=== PATIENT | female | born 1965 | race Two or more races ===

== ENCOUNTER 2020-08-24 19:23 | Inpatient (IN) | payer MEDICARE, OTHER ==
[~2020-08-24] VITALS: Ht 160 cm; Wt 63.8 kg
[2020-08-24] MEDS ORDERED: methylPREDNISolone SOD SUCC 125 MG/2 ML VL IV ONE (19:45)
[2020-08-24] MEDS ORDERED: AZITHROMYCIN 500MG/ 250ML 250 ML IV ONE (19:45)
[2020-08-24 20:50] LABS: Basophils # (auto) 0 10 ^3/uL (0-0.2); Eosinophils # (auto) 0 10 ^3/uL (0-0.8); Hematocrit 35.6 % (36.0-46.0)
[2020-08-24 20:52] LABS: Basophils % (auto) 0.2 % (0.0-2.0); Hemoglobin 11.2 g/dL (12.2-16.2); Lymphocytes % (auto) 7.4 % (10.0-50.0); Mean Corpuscular Hgb Conc. 31.4 g/dL (32.0-36.0); Monocytes # (auto) 0.4 10 ^3/uL (0-1.3); Monocytes % (auto) 2.8 % (0.0-12.0); Neutrophils # (auto) 12.1 10 ^3/uL (1.6-8.6); Neutrophils % (auto) 89.6 % (37.0-80.0); Nucleated Red Blood Cells % 0.1 %; Platelet Count (auto) 245 10^3/uL (140-450); Red Blood Cells 5.31 10^6/uL (4.0-5.20); Red Cell Distribution Width 18.6 % (11.8-14.3); White Blood Cell 13.5 10^3/uL (4.4-10.8)
[2020-08-24 21:15] VITALS: BP 117/48
[2020-08-24 21:18] LABS: INR 2.55 (0.9-1.15); Partial Thromboplastin Time 40.7 sec (23.0-31.2)
[2020-08-24 21:21] LABS: Albumin 3.4 g/dL (3.4-5.0); Magnesium 2.5 mg/dL (1.6-2.6); Potassium 3.5 mmol/L (3.5-5.1)
[2020-08-24 21:27] LABS: BUN/Creatinine Ratio 17.9; Bilirubin, Total 0.6 mg/dL (0.2-1.0); Total Protein 7.6 g/dL (6.4-8.2)
[2020-08-25] VITALS (7 sets, daily range): BP systolic 98–129; BP diastolic 50–63
[2020-08-25] MEDS ORDERED: ONDANSETRON HCL 4 MG/2 ML VIAL IV PRN (01:00)
[2020-08-25] MEDS ORDERED: MORPHINE SULF INJ 2 MG/ML SYRINGE 1ML IV PRN (01:00)
[2020-08-25] MEDS ORDERED: REMDESIVIR PER PHARMACY 0 ML IV SCH (01:00)
[2020-08-25] MEDS ORDERED: DOCUSATE SOD 100 MG CAP PO PRN (01:00)
[2020-08-25] MEDS ORDERED: HYDROcodone-ACET 5/325MG TAB PO PRN (01:00)
[2020-08-25] MEDS ORDERED: NITROGLYCERIN 0.4 MG SL TAB SL PRN (01:00)
[2020-08-25] MEDS ORDERED: ACETAMINOPHEN 500 MG TAB PO PRN (01:00)
[2020-08-25] MEDS: SODIUM CHLOR 0.9% PF (SALINE LOCK) 10ML VIAL/SYR IV SCH ×3 (07:36→22:00)
[2020-08-25 07:47] LABS: Basophils # (auto) 0 10 ^3/uL (0-0.2); Eosinophils # (auto) 0 10 ^3/uL (0-0.8); Hemoglobin 10.5 g/dL (12.2-16.2); Lymphocytes # (auto) 0.5 10 ^3/uL (0.4-5.4); White Blood Cell 11.2 10^3/uL (4.4-10.8)
[2020-08-25 07:50] LABS: Basophils % (auto) 0.1 % (0.0-2.0); Hematocrit 33.1 % (36.0-46.0); Lymphocytes % (auto) 4.1 % (10.0-50.0); Mean Corpuscular Hemoglobin 20.8 pg (28.0-32.0); Mean Corpuscular Hgb Conc. 31.5 g/dL (32.0-36.0); Monocytes # (auto) 0.1 10 ^3/uL (0-1.3); Monocytes % (auto) 0.9 % (0.0-12.0); Neutrophils # (auto) 10.7 10 ^3/uL (1.6-8.6); Neutrophils % (auto) 94.9 % (37.0-80.0); Platelet Count (auto) 223 10^3/uL (140-450); Red Blood Cells 5.02 10^6/uL (4.0-5.20); Red Cell Distribution Width 18.2 % (11.8-14.3)
[2020-08-25 08:12] LABS: INR 2.44 (0.9-1.15); Partial Thromboplastin Time 43.6 sec (23.0-31.2)
[2020-08-25 08:17] LABS: Albumin 3.1 g/dL (3.4-5.0); Calcium 8.4 mg/dL (8.5-10.1); Magnesium 2.6 mg/dL (1.6-2.6); Potassium 4.1 mmol/L (3.5-5.1)
[2020-08-25 08:26] LABS: BUN/Creatinine Ratio 25.8; Bilirubin, Total 0.5 mg/dL (0.2-1.0)
[2020-08-25] MEDS: BUDESONIDE (INHALATION) 180 MCG IH IN SCH ×2 (10:00→20:00)
[2020-08-25] MEDS: DOXYCYCLINE 100MG/250ML 250 ML IV SCH (10:06)
[2020-08-25] MEDS: MULTIPLE VITAMIN TAB PO SCH (10:06)
[2020-08-25] MEDS: ZINC SULFATE 220mg CAP or TAB PO SCH (10:06)
[2020-08-25] MEDS: PANTOPRAZOLE 40 MG/10 ML VIAL INJ IV SCH (10:06)
[2020-08-25] MEDS: DexAMETHasone SOD PHOS 10MG/1ML VIAL INJ IV SCH (10:06)
[2020-08-25] MEDS: ENOXAPARIN SOD 40 MG/0.4 ML SYRINGE SC SCH (10:07)
[2020-08-25] MEDS: CHOLECALCIFEROL (VITD3) 2,000 UNIT CAP PO SCH (10:07)
[2020-08-25] MEDS: ASCORBIC ACID 1,000 MG TAB PO SCH (10:07)
[2020-08-25] MEDS ORDERED: REMDESIVIR 200 MG in NS 210ml LOADING DOSE ADULT IV ONE (15:00)
[2020-08-26 00:40] VITALS: BP 104/55
[2020-08-26] MEDS: DOXYCYCLINE 100MG/250ML 250 ML IV SCH ×3 (00:58→21:36)
[2020-08-26] MEDS: SODIUM CHLOR 0.9% PF (SALINE LOCK) 10ML VIAL/SYR IV SCH ×3 (06:00→21:36)
[2020-08-26 06:21] LABS: Basophils # (auto) 0 10 ^3/uL (0-0.2); Basophils % (auto) 0.2 % (0.0-2.0); Eosinophils # (auto) 0 10 ^3/uL (0-0.8); Hematocrit 32.9 % (36.0-46.0); Hemoglobin 10.4 g/dL (12.2-16.2); Lymphocytes # (auto) 0.5 10 ^3/uL (0.4-5.4); Lymphocytes % (auto) 3.5 % (10.0-50.0); Mean Corpuscular Hemoglobin 20.9 pg (28.0-32.0); Mean Corpuscular Hgb Conc. 31.6 g/dL (32.0-36.0); Monocytes # (auto) 0.5 10 ^3/uL (0-1.3); Monocytes % (auto) 3.3 % (0.0-12.0); Neutrophils # (auto) 13.8 10 ^3/uL (1.6-8.6); Nucleated Red Blood Cells % 0.1 %; Platelet Count (auto) 284 10^3/uL (140-450); Red Blood Cells 4.99 10^6/uL (4.0-5.20); Red Cell Distribution Width 18.9 % (11.8-14.3); White Blood Cell 14.8 10^3/uL (4.4-10.8)
[2020-08-26 06:41] LABS: Potassium 3.7 mmol/L (3.5-5.1)
[2020-08-26 06:45] LABS: BUN/Creatinine Ratio 32.7
[2020-08-26 06:48] LABS: Bilirubin, Total 0.7 mg/dL (0.2-1.0); Total Protein 6.8 g/dL (6.4-8.2)
[2020-08-26 08:00] VITALS: BP 123/49
[2020-08-26] MEDS: BUDESONIDE (INHALATION) 180 MCG IH IN SCH ×2 (10:00→22:00)
[2020-08-26] MEDS: MULTIPLE VITAMIN TAB PO SCH (10:04)
[2020-08-26] MEDS: PANTOPRAZOLE 40 MG/10 ML VIAL INJ IV SCH (10:04)
[2020-08-26] MEDS: DexAMETHasone SOD PHOS 10MG/1ML VIAL INJ IV SCH (10:04)
[2020-08-26] MEDS: ENOXAPARIN SOD 40 MG/0.4 ML SYRINGE SC SCH (10:04)
[2020-08-26] MEDS: ZINC SULFATE 220mg CAP or TAB PO SCH (10:04)
[2020-08-26] MEDS: CHOLECALCIFEROL (VITD3) 2,000 UNIT CAP PO SCH (10:05)
[2020-08-26] MEDS: ASCORBIC ACID 1,000 MG TAB PO SCH (10:05)
[2020-08-26] MEDS: REMDESIVIR 100 MG in SODIUM CHL 0.9% 250 ML IV SCH (15:30)
[2020-08-26 16:00] VITALS: BP 130/64
[2020-08-26] MEDS ORDERED: FUROSEMIDE 40 MG/4 ML VIAL IV ONE (23:30)
[2020-08-27] VITALS: BP 114/54
[2020-08-27] MEDS: SODIUM CHLOR 0.9% PF (SALINE LOCK) 10ML VIAL/SYR IV SCH ×3 (06:00→21:26)
[2020-08-27 06:21] LABS: Basophils # (auto) 0 10 ^3/uL (0-0.2); Eosinophils # (auto) 0 10 ^3/uL (0-0.8); Hemoglobin 10.8 g/dL (12.2-16.2); Monocytes # (auto) 0.4 10 ^3/uL (0-1.3); Neutrophils # (auto) 13.7 10 ^3/uL (1.6-8.6); Nucleated Red Blood Cells % 0.1 %
[2020-08-27 06:24] LABS: Basophils % (auto) 0.2 % (0.0-2.0); Lymphocytes # (auto) 0.4 10 ^3/uL (0.4-5.4); Lymphocytes % (auto) 2.8 % (10.0-50.0); Mean Corpuscular Hemoglobin 20.5 pg (28.0-32.0); Mean Corpuscular Hgb Conc. 30.8 g/dL (32.0-36.0); Mean Corpuscular Volume 66.7 fL (80.0-100.0); Monocytes % (auto) 2.9 % (0.0-12.0); Neutrophils % (auto) 94.1 % (37.0-80.0); Platelet Count (auto) 260 10^3/uL (140-450); Red Blood Cells 5.24 10^6/uL (4.0-5.20); Red Cell Distribution Width 18.8 % (11.8-14.3); White Blood Cell 14.6 10^3/uL (4.4-10.8)
[2020-08-27 06:39] LABS: Albumin 2.9 g/dL (3.4-5.0); Calcium 8.5 mg/dL (8.5-10.1); Magnesium 2.8 mg/dL (1.6-2.6); Potassium 3.7 mmol/L (3.5-5.1)
[2020-08-27 06:46] LABS: BUN/Creatinine Ratio 33.3; Bilirubin, Total 0.9 mg/dL (0.2-1.0); Total Protein 6.9 g/dL (6.4-8.2)
[2020-08-27 08:00] VITALS: BP 131/62
[2020-08-27] MEDS: BUDESONIDE (INHALATION) 180 MCG IH IN SCH ×2 (09:37→20:43)
[2020-08-27] MEDS: PANTOPRAZOLE 40 MG/10 ML VIAL INJ IV SCH (10:46)
[2020-08-27] MEDS: DexAMETHasone SOD PHOS 10MG/1ML VIAL INJ IV SCH (10:46)
[2020-08-27] MEDS: ASCORBIC ACID 1,000 MG TAB PO SCH (10:46)
[2020-08-27] MEDS: DOXYCYCLINE 100MG/250ML 250 ML IV SCH ×2 (10:46→21:27)
[2020-08-27] MEDS: ZINC SULFATE 220mg CAP or TAB PO SCH (10:46)
[2020-08-27] MEDS: CHOLECALCIFEROL (VITD3) 2,000 UNIT CAP PO SCH (10:47)
[2020-08-27] MEDS: MULTIPLE VITAMIN TAB PO SCH (10:47)
[2020-08-27] MEDS: ENOXAPARIN SOD 40 MG/0.4 ML SYRINGE SC SCH (10:47)
[2020-08-27] MEDS ORDERED: FUROSEMIDE 40 MG/4 ML VIAL IV ONE (15:15)
[2020-08-27] MEDS: REMDESIVIR 100 MG in SODIUM CHL 0.9% 250 ML IV SCH (15:18)
[2020-08-27 16:00] VITALS: BP 98/54
[2020-08-27 18:00] VITALS: BP 117/51
[2020-08-28] VITALS: BP 108/48
[2020-08-28] MEDS: SODIUM CHLOR 0.9% PF (SALINE LOCK) 10ML VIAL/SYR IV SCH ×3 (05:32→21:15)
[2020-08-28] MEDS: BUDESONIDE (INHALATION) 180 MCG IH IN SCH ×2 (06:41→06:56)
[2020-08-28 06:59] LABS: Potassium 3.6 mmol/L (3.5-5.1)
[2020-08-28 07:51] LABS: BUN/Creatinine Ratio 42.9; Bilirubin, Total 1.1 mg/dL (0.2-1.0); Calcium 8.6 mg/dL (8.5-10.1); Total Protein 7.2 g/dL (6.4-8.2)
[2020-08-28 08:00] VITALS: BP 115/63
[2020-08-28] MEDS: ALBUTEROL SULF HFA 90MCG INH 200DOSE IN PRN (08:07)
[2020-08-28] MEDS: DOXYCYCLINE 100MG/250ML 250 ML IV SCH ×2 (10:51→21:15)
[2020-08-28] MEDS: PANTOPRAZOLE 40 MG/10 ML VIAL INJ IV SCH (10:51)
[2020-08-28] MEDS: DexAMETHasone SOD PHOS 10MG/1ML VIAL INJ IV SCH (10:51)
[2020-08-28] MEDS: ZINC SULFATE 220mg CAP or TAB PO SCH (10:51)
[2020-08-28] MEDS: MULTIPLE VITAMIN TAB PO SCH (10:51)
[2020-08-28] MEDS: CHOLECALCIFEROL (VITD3) 2,000 UNIT CAP PO SCH (10:52)
[2020-08-28] MEDS: ENOXAPARIN SOD 40 MG/0.4 ML SYRINGE SC SCH (10:52)
[2020-08-28] MEDS: ASCORBIC ACID 1,000 MG TAB PO SCH (10:52)
[2020-08-28] MEDS: REMDESIVIR 100 MG in SODIUM CHL 0.9% 250 ML IV SCH (15:20)
[2020-08-28 16:00] VITALS: BP 109/60
[2020-08-29] VITALS: BP 112/54
[2020-08-29] MEDS: SODIUM CHLOR 0.9% PF (SALINE LOCK) 10ML VIAL/SYR IV SCH ×3 (05:47→21:40)
[2020-08-29 06:22] LABS: Basophils # (auto) 0 10 ^3/uL (0-0.2); Eosinophils # (auto) 0 10 ^3/uL (0-0.8); Hemoglobin 11.7 g/dL (12.2-16.2); Lymphocytes # (auto) 0.6 10 ^3/uL (0.4-5.4); Monocytes # (auto) 0.5 10 ^3/uL (0-1.3); Nucleated Red Blood Cells % 0.1 %; Platelet Count (auto) 223 10^3/uL (140-450); White Blood Cell 13.2 10^3/uL (4.4-10.8)
[2020-08-29 06:26] LABS: Hematocrit 37.5 % (36.0-46.0); Lymphocytes % (auto) 4.7 % (10.0-50.0); Mean Corpuscular Hemoglobin 20.5 pg (28.0-32.0); Mean Corpuscular Hgb Conc. 31.2 g/dL (32.0-36.0); Mean Corpuscular Volume 65.7 fL (80.0-100.0); Neutrophils % (auto) 91.3 % (37.0-80.0); Red Cell Distribution Width 18.3 % (11.8-14.3)
[2020-08-29] MEDS: ALBUTEROL SULF HFA 90MCG INH 200DOSE IN PRN ×2 (06:41→21:18)
[2020-08-29] MEDS: BUDESONIDE (INHALATION) 180 MCG IH IN SCH ×2 (06:41→21:40)
[2020-08-29 08:00] VITALS: BP 124/63
[2020-08-29 09:12] LABS: Albumin 2.7 g/dL (3.4-5.0); BUN/Creatinine Ratio 48.9; Bilirubin, Total 0.9 mg/dL (0.2-1.0); CRP High Sensitivity 5.03 mg/dL (< 0.3); Calcium 8.5 mg/dL (8.5-10.1); Magnesium 2.4 mg/dL (1.6-2.6); Potassium 3.5 mmol/L (3.5-5.1); Total Protein 6.8 g/dL (6.4-8.2)
[2020-08-29] MEDS: PANTOPRAZOLE 40 MG/10 ML VIAL INJ IV SCH (11:00)
[2020-08-29] MEDS: MULTIPLE VITAMIN TAB PO SCH (11:00)
[2020-08-29] MEDS: CHOLECALCIFEROL (VITD3) 2,000 UNIT CAP PO SCH (11:00)
[2020-08-29] MEDS: ENOXAPARIN SOD 40 MG/0.4 ML SYRINGE SC SCH (11:00)
[2020-08-29] MEDS: DOXYCYCLINE 100MG/250ML 250 ML IV SCH ×2 (11:00→21:41)
[2020-08-29] MEDS: ZINC SULFATE 220mg CAP or TAB PO SCH (11:00)
[2020-08-29] MEDS: ASCORBIC ACID 1,000 MG TAB PO SCH (11:00)
[2020-08-29] MEDS: DexAMETHasone SOD PHOS 10MG/1ML VIAL INJ IV SCH (11:00)
[2020-08-29] MEDS: REMDESIVIR 100 MG in SODIUM CHL 0.9% 250 ML IV SCH (15:30)
[2020-08-29 16:00] VITALS: BP 112/62
[2020-08-30] VITALS: BP_SYST 120; BP_SYST 92; BP_DIAS 54; BP_DIAS 58
[2020-08-30] MEDS: SODIUM CHLOR 0.9% PF (SALINE LOCK) 10ML VIAL/SYR IV SCH ×3 (06:20→21:56)
[2020-08-30 07:21] LABS: Basophils # (auto) 0 10 ^3/uL (0-0.2); Eosinophils # (auto) 0 10 ^3/uL (0-0.8); Hemoglobin 11.7 g/dL (12.2-16.2); Lymphocytes # (auto) 0.5 10 ^3/uL (0.4-5.4); Lymphocytes % (auto) 3.6 % (10.0-50.0); Monocytes # (auto) 0.3 10 ^3/uL (0-1.3); Red Cell Distribution Width 18.4 % (11.8-14.3)
[2020-08-30 07:24] LABS: Hematocrit 37.1 % (36.0-46.0); Mean Corpuscular Hgb Conc. 31.6 g/dL (32.0-36.0); Mean Corpuscular Volume 66.4 fL (80.0-100.0); Monocytes % (auto) 2.3 % (0.0-12.0); Neutrophils # (auto) 12.1 10 ^3/uL (1.6-8.6); Neutrophils % (auto) 94.1 % (37.0-80.0); Nucleated Red Blood Cells % 0.2 %; Platelet Count (auto) 231 10^3/uL (140-450); Red Blood Cells 5.59 10^6/uL (4.0-5.20); White Blood Cell 12.8 10^3/uL (4.4-10.8)
[2020-08-30 07:35] LABS: Albumin 2.9 g/dL (3.4-5.0); Calcium 8.2 mg/dL (8.5-10.1); Magnesium 2.4 mg/dL (1.6-2.6); Potassium 3.9 mmol/L (3.5-5.1)
[2020-08-30 07:39] LABS: BUN/Creatinine Ratio 36.4; Bilirubin, Total 0.9 mg/dL (0.2-1.0); Total Protein 6.8 g/dL (6.4-8.2)
[2020-08-30 08:00] VITALS: BP 111/56
[2020-08-30] MEDS: PANTOPRAZOLE 40 MG/10 ML VIAL INJ IV SCH (10:00)
[2020-08-30] MEDS: MULTIPLE VITAMIN TAB PO SCH (11:24)
[2020-08-30] MEDS: DexAMETHasone SOD PHOS 10MG/1ML VIAL INJ IV SCH (11:24)
[2020-08-30] MEDS: ZINC SULFATE 220mg CAP or TAB PO SCH (11:24)
[2020-08-30] MEDS: ENOXAPARIN SOD 40 MG/0.4 ML SYRINGE SC SCH (11:25)
[2020-08-30] MEDS: CHOLECALCIFEROL (VITD3) 2,000 UNIT CAP PO SCH (11:25)
[2020-08-30] MEDS: ASCORBIC ACID 1,000 MG TAB PO SCH (11:25)
[2020-08-30] MEDS: BUDESONIDE (INHALATION) 180 MCG IH IN SCH ×2 (14:01→16:38)
[2020-08-30 16:21] VITALS: BP 109/56
[2020-08-30] MEDS: ALBUTEROL SULF HFA 90MCG INH 200DOSE IN PRN ×2 (16:39→18:04)
[2020-08-31] VITALS: BP 100/62
[2020-08-31] MEDS: SODIUM CHLOR 0.9% PF (SALINE LOCK) 10ML VIAL/SYR IV SCH ×3 (07:19→21:53)
[2020-08-31 08:00] VITALS: BP 115/58
[2020-08-31] MEDS: BUDESONIDE (INHALATION) 180 MCG IH IN SCH ×3 (10:04→19:28)
[2020-08-31] MEDS: PANTOPRAZOLE 40 MG/10 ML VIAL INJ IV SCH (10:04)
[2020-08-31] MEDS: DexAMETHasone SOD PHOS 10MG/1ML VIAL INJ IV SCH (10:04)
[2020-08-31] MEDS: ZINC SULFATE 220mg CAP or TAB PO SCH (10:04)
[2020-08-31] MEDS: ASCORBIC ACID 1,000 MG TAB PO SCH (10:05)
[2020-08-31] MEDS: ENOXAPARIN SOD 40 MG/0.4 ML SYRINGE SC SCH (10:05)
[2020-08-31] MEDS: CHOLECALCIFEROL (VITD3) 2,000 UNIT CAP PO SCH (10:05)
[2020-08-31] MEDS: MULTIPLE VITAMIN TAB PO SCH (10:05)
[2020-08-31] MEDS: ALBUTEROL SULF HFA 90MCG INH 200DOSE IN PRN ×2 (11:38→19:28)
[2020-08-31 16:00] VITALS: BP 108/58
[2020-08-31] MEDS: FAMOTIDINE (10MG/ML) 2ML VL IV SCH (21:53)
[2020-09-01] VITALS: BP 97/40
[2020-09-01] MEDS: SODIUM CHLOR 0.9% PF (SALINE LOCK) 10ML VIAL/SYR IV SCH ×3 (06:17→21:13)
[2020-09-01] MEDS: BUDESONIDE (INHALATION) 180 MCG IH IN SCH ×3 (07:08→20:27)
[2020-09-01] MEDS: ALBUTEROL SULF HFA 90MCG INH 200DOSE IN PRN ×2 (07:08→20:27)
[2020-09-01 07:17] LABS: Potassium 3.9 mmol/L (3.5-5.1)
[2020-09-01 07:38] LABS: BUN/Creatinine Ratio 41.3; Bilirubin, Total 0.8 mg/dL (0.2-1.0); Calcium 8.2 mg/dL (8.5-10.1); Total Protein 6.8 g/dL (6.4-8.2)
[2020-09-01 08:00] VITALS: BP 98/58
[2020-09-01] MEDS: FAMOTIDINE (10MG/ML) 2ML VL IV SCH ×2 (10:52→21:13)
[2020-09-01] MEDS: DexAMETHasone SOD PHOS 10MG/1ML VIAL INJ IV SCH (10:52)
[2020-09-01] MEDS: ZINC SULFATE 220mg CAP or TAB PO SCH (10:52)
[2020-09-01] MEDS: ASPirin-EC 81 mg tab PO SCH (10:52)
[2020-09-01] MEDS: ENOXAPARIN SOD 40 MG/0.4 ML SYRINGE SC SCH (10:53)
[2020-09-01] MEDS: CHOLECALCIFEROL (VITD3) 1,000UNIT=25mCg TAB PO SCH (10:53)
[2020-09-01] MEDS: MULTIPLE VITAMIN TAB PO SCH (10:53)
[2020-09-01] MEDS: ASCORBIC ACID 1,000 MG TAB PO SCH (10:53)
[2020-09-01 16:00] VITALS: BP 106/62
[2020-09-01] MEDS: guaiFENesin-DM 100/10mg/5ml SYR PO PRN (21:13)
[2020-09-02] VITALS: BP 94/58
[2020-09-02] MEDS: guaiFENesin-DM 100/10mg/5ml SYR PO PRN (05:19)
[2020-09-02] MEDS: SODIUM CHLOR 0.9% PF (SALINE LOCK) 10ML VIAL/SYR IV SCH ×3 (05:48→22:00)
[2020-09-02 06:30] VITALS: BP 94/58
[2020-09-02] MEDS: ALBUTEROL SULF HFA 90MCG INH 200DOSE IN PRN ×2 (06:30→19:32)
[2020-09-02] MEDS: BUDESONIDE (INHALATION) 180 MCG IH IN SCH ×2 (06:30→19:32)
[2020-09-02 07:43] LABS: Potassium 3.8 mmol/L (3.5-5.1)
[2020-09-02 07:49] LABS: Albumin 2.8 g/dL (3.4-5.0); BUN/Creatinine Ratio 47.7; Bilirubin, Total 0.7 mg/dL (0.2-1.0); Calcium 8.1 mg/dL (8.5-10.1); Total Protein 6.2 g/dL (6.4-8.2)
[2020-09-02 08:00] VITALS: BP 100/51
[2020-09-02] MEDS: CHOLECALCIFEROL (VITD3) 1,000UNIT=25mCg TAB PO SCH (09:44)
[2020-09-02] MEDS: FAMOTIDINE (10MG/ML) 2ML VL IV SCH ×2 (09:44→22:00)
[2020-09-02] MEDS: DexAMETHasone SOD PHOS 10MG/1ML VIAL INJ IV SCH (09:44)
[2020-09-02] MEDS: ZINC SULFATE 220mg CAP or TAB PO SCH (09:44)
[2020-09-02] MEDS: ASPirin-EC 81 mg tab PO SCH (09:44)
[2020-09-02] MEDS: MULTIPLE VITAMIN TAB PO SCH (09:45)
[2020-09-02] MEDS: ASCORBIC ACID 1,000 MG TAB PO SCH (09:45)
[2020-09-02] MEDS: ENOXAPARIN SOD 40 MG/0.4 ML SYRINGE SC SCH (09:45)
[2020-09-02] MEDS ORDERED: SODIUM CHLORIDE 0.9% 1,000 ML IV ONE (13:30)
[2020-09-02] MEDS ORDERED: SODIUM CHLORIDE 0.9% 1,000 ML IV SCH (13:30)
[2020-09-02 13:37] LABS: Basophils # (auto) 0 10 ^3/uL (0-0.2); Eosinophils # (auto) 0 10 ^3/uL (0-0.8); Hemoglobin 11.6 g/dL (12.2-16.2); Monocytes # (auto) 0.3 10 ^3/uL (0-1.3); Nucleated Red Blood Cells % 0.1 %; Red Cell Distribution Width 18.6 % (11.8-14.3)
[2020-09-02 13:38] LABS: Basophils % (auto) 0.2 % (0.0-2.0); Eosinophils % (auto) 0.1 % (0.0-7.0); Lymphocytes # (auto) 0.5 10 ^3/uL (0.4-5.4); Lymphocytes % (auto) 3.4 % (10.0-50.0); Mean Corpuscular Hemoglobin 20.9 pg (28.0-32.0); Mean Corpuscular Hgb Conc. 31.3 g/dL (32.0-36.0); Mean Corpuscular Volume 66.7 fL (80.0-100.0); Monocytes % (auto) 1.8 % (0.0-12.0); Neutrophils # (auto) 13.3 10 ^3/uL (1.6-8.6); Neutrophils % (auto) 94.5 % (37.0-80.0); Platelet Count (auto) 180 10^3/uL (140-450); Red Blood Cells 5.55 10^6/uL (4.0-5.20); White Blood Cell 14.1 10^3/uL (4.4-10.8)
[2020-09-02] MEDS ORDERED: METF-370 PO (14:56)
[2020-09-02] MEDS ORDERED: FLUO-125 PO (14:56)
[2020-09-02] MEDS ORDERED: WARF5TAB71 PO (14:56)
[2020-09-02] MEDS ORDERED: ATEN-60 PO (14:56)
[2020-09-02 15:21] LABS: % Iron Saturation 11.1 % (15-50)
[2020-09-02 16:00] VITALS: BP 101/58
[2020-09-02] MEDS: FERROUS SULFATE 325 MG TAB PO SCH (17:19)
[2020-09-02 17:52] LABS: INR 1.2 (0.9-1.15); Partial Thromboplastin Time 28.4 sec (23.0-31.2)
[2020-09-02] MEDS ORDERED: WARFARIN SODIUM 2.5 MG TAB PO ONE (20:00)
[2020-09-02] MEDS: ENOXAPARIN SOD 80 MG/0.8ML SYRINGE SC SCH (22:00)
[2020-09-02] MEDS: SODIUM CHLORIDE 0.9% 1,000 ML IV SCH (23:30)
[2020-09-03] VITALS: BP 100/49
[2020-09-03] MEDS: SODIUM CHLOR 0.9% PF (SALINE LOCK) 10ML VIAL/SYR IV SCH ×3 (06:19→22:00)
[2020-09-03] MEDS: BUDESONIDE (INHALATION) 180 MCG IH IN SCH (06:32)
[2020-09-03] MEDS: ALBUTEROL SULF HFA 90MCG INH 200DOSE IN PRN (06:32)
[2020-09-03 06:33] LABS: INR 1.23 (0.9-1.15); Partial Thromboplastin Time 31.6 sec (23.0-31.2)
[2020-09-03 06:44] LABS: Potassium 3.8 mmol/L (3.5-5.1)
[2020-09-03 06:48] LABS: Albumin 2.7 g/dL (3.4-5.0); BUN/Creatinine Ratio 40.5
[2020-09-03 06:50] LABS: Bilirubin, Total 0.6 mg/dL (0.2-1.0); Total Protein 6.1 g/dL (6.4-8.2)
[2020-09-03 08:20] VITALS: BP 100/47
[2020-09-03 08:30] VITALS: BP 109/76
[2020-09-03] MEDS: ASPirin-EC 81 mg tab PO SCH (10:37)
[2020-09-03] MEDS: ZINC SULFATE 220mg CAP or TAB PO SCH (10:38)
[2020-09-03] MEDS: MULTIPLE VITAMIN TAB PO SCH (10:38)
[2020-09-03] MEDS: DexAMETHasone SOD PHOS 10MG/1ML VIAL INJ IV SCH (10:39)
[2020-09-03] MEDS: FLUoxetine HCL 20 MG CAP PO SCH (10:39)
[2020-09-03] MEDS: ASCORBIC ACID 1,000 MG TAB PO SCH (10:39)
[2020-09-03] MEDS: CHOLECALCIFEROL (VITD3) 1,000UNIT=25mCg TAB PO SCH (10:42)
[2020-09-03] MEDS: FAMOTIDINE (10MG/ML) 2ML VL IV SCH ×2 (10:46→22:00)
[2020-09-03] MEDS: ENOXAPARIN SOD 80 MG/0.8ML SYRINGE SC SCH ×2 (10:54→22:00)
[2020-09-03] MEDS: FERROUS SULFATE 325 MG TAB PO SCH ×3 (11:00→19:07)
[2020-09-03] MEDS: SODIUM CHLORIDE 0.9% 1,000 ML IV SCH (15:05)
[2020-09-03 16:00] VITALS: BP 109/77
[2020-09-03] MEDS ORDERED: WARFARIN SODIUM 2.5 MG TAB PO ONE (17:00)
[2020-09-03 17:03] LABS: Eosinophils # (auto) 0 10 ^3/uL (0-0.8); Lymphocytes # (auto) 0.3 10 ^3/uL (0.4-5.4); Mean Corpuscular Volume 67.7 fL (80.0-100.0); Monocytes # (auto) 0.1 10 ^3/uL (0-1.3)
[2020-09-03 17:06] LABS: Basophils # (auto) 0.1 10 ^3/uL (0-0.2); Basophils % (auto) 0.8 % (0.0-2.0); Hematocrit 39.6 % (36.0-46.0); Hemoglobin 12.5 g/dL (12.2-16.2); Lymphocytes % (auto) 1.8 % (10.0-50.0); Mean Corpuscular Hemoglobin 21.4 pg (28.0-32.0); Mean Corpuscular Hgb Conc. 31.6 g/dL (32.0-36.0); Monocytes % (auto) 0.4 % (0.0-12.0); Neutrophils # (auto) 16.7 10 ^3/uL (1.6-8.6); Nucleated Red Blood Cells % 0.1 %; Platelet Count (auto) 188 10^3/uL (140-450); Red Blood Cells 5.84 10^6/uL (4.0-5.20); Red Cell Distribution Width 18.5 % (11.8-14.3); White Blood Cell 17.2 10^3/uL (4.4-10.8)
[2020-09-03 17:13] LABS: Albumin 2.9 g/dL (3.4-5.0); Calcium 8.3 mg/dL (8.5-10.1); Potassium 4.3 mmol/L (3.5-5.1)
[2020-09-03 17:15] LABS: Bilirubin, Total 0.9 mg/dL (0.2-1.0); Total Protein 6.6 g/dL (6.4-8.2)
[2020-09-04] VITALS (40 sets, daily range): BP systolic 56–161; BP diastolic 25–82
[2020-09-04] MEDS: SODIUM CHLOR 0.9% PF (SALINE LOCK) 10ML VIAL/SYR IV SCH ×2 (05:59→14:00)
[2020-09-04] MEDS ORDERED: SUCCINYLCHOLINE CHLORIDE 20 MG/ML 10ML VIAL IV ONE ×2 (06:42→07:30)
[2020-09-04] MEDS ORDERED: ETOMIDATE (2MG/ML) 20ML VIAL IV ONE ×2 (06:42→07:30)
[2020-09-04] MEDS ORDERED: MIDAZOLAM DRIP 50 mg/50mL 50 ML IV ONE (06:53)
[2020-09-04] MEDS ORDERED: methylPREDNISolone SOD SUCC 125 MG/2 ML VL ONE (06:55)
[2020-09-04] MEDS ORDERED: methylPREDNISolone SOD SUCC 125 MG/2 ML VL IV ONE (07:00)
[2020-09-04] MEDS: MIDAZOLAM DRIP 50 mg/50mL 50 ML IV SCH ×2 (07:03→17:14)
[2020-09-04] MEDS ORDERED: fentaNYL Drip 2500mCg/250mlNS 250 ML IV ONE (07:24)
[2020-09-04] MEDS ORDERED: ALBUTEROL SULF 2.5 MG/0.5ML(0.5%) NEB SOLN NEB PRN (07:30)
[2020-09-04] MEDS: fentaNYL Drip 2500mCg/250mlNS 250 ML IV SCH ×2 (08:00→17:15)
[2020-09-04] MEDS: FERROUS SULFATE 325 MG TAB PO SCH ×3 (08:00→17:14)
[2020-09-04 08:18] LABS: Eosinophils # (auto) 0 10 ^3/uL (0-0.8); Hemoglobin 12.5 g/dL (12.2-16.2); Lymphocytes # (auto) 1.4 10 ^3/uL (0.4-5.4); Monocytes # (auto) 0.2 10 ^3/uL (0-1.3); Neutrophils # (auto) 22.4 10 ^3/uL (1.6-8.6); White Blood Cell 24.2 10^3/uL (4.4-10.8)
[2020-09-04 08:21] LABS: Basophils # (auto) 0.1 10 ^3/uL (0-0.2); Basophils % (auto) 0.5 % (0.0-2.0); Eosinophils % (auto) 0.2 % (0.0-7.0); Hematocrit 41.6 % (36.0-46.0); Lymphocytes % (auto) 5.7 % (10.0-50.0); Mean Corpuscular Hemoglobin 20.8 pg (28.0-32.0); Mean Corpuscular Hgb Conc. 29.9 g/dL (32.0-36.0); Mean Corpuscular Volume 69.7 fL (80.0-100.0); Neutrophils % (auto) 92.6 % (37.0-80.0); Platelet Count (auto) 279 10^3/uL (140-450); Red Blood Cells 5.98 10^6/uL (4.0-5.20); Red Cell Distribution Width 19.3 % (11.8-14.3)
[2020-09-04 08:33] LABS: INR 1.95 (0.9-1.15)
[2020-09-04 08:37] LABS: Potassium 3.8 mmol/L (3.5-5.1)
[2020-09-04 08:44] LABS: Albumin 2.8 g/dL (3.4-5.0); BUN/Creatinine Ratio 30.8; Calcium 8.1 mg/dL (8.5-10.1); Total Protein 6.9 g/dL (6.4-8.2)
[2020-09-04] MEDS ORDERED: SODIUM BICARBONATE 8.4 % INJ 50ML VIAL IV ONE (09:15)
[2020-09-04] MEDS ORDERED: ROCURONIUM 10MG/ML 10ML VIAL IV ONE (09:15)
[2020-09-04] MEDS ORDERED: PROPOFOL 100 ML IV SCH (09:15)
[2020-09-04] MEDS: PHENYLEPHRINE IV 250 ML IV SCH ×2 (09:35→17:14)
[2020-09-04] MEDS: FAMOTIDINE (10MG/ML) 2ML VL IV SCH (09:58)
[2020-09-04] MEDS: CHOLECALCIFEROL (VITD3) 1,000UNIT=25mCg TAB PO SCH (09:58)
[2020-09-04] MEDS: MULTIPLE VITAMIN TAB PO SCH (09:58)
[2020-09-04] MEDS: ENOXAPARIN SOD 80 MG/0.8ML SYRINGE SC SCH (09:58)
[2020-09-04] MEDS: FLUoxetine HCL 20 MG CAP PO SCH (09:58)
[2020-09-04] MEDS: ZINC SULFATE 220mg CAP or TAB PO SCH (09:58)
[2020-09-04] MEDS: DexAMETHasone SOD PHOS 10MG/1ML VIAL INJ IV SCH (09:58)
[2020-09-04] MEDS ORDERED: BUDESONIDE (INHALATION) 0.5 MG/2 ML NEB NEB SCH (10:00)
[2020-09-04] MEDS: ASPirin-EC 81 mg tab PO SCH (10:00)
[2020-09-04] MEDS: ASCORBIC ACID 1,000 MG TAB PO SCH (10:00)
[2020-09-04] MEDS ORDERED: ROCURONIUM 10MG/ML 10ML VIAL IV PRN (12:15)
[2020-09-04] MEDS ORDERED: NOREPINEPHRINE 8 MG/250ML KIT 250 ML IV ONE (17:47)
[2020-09-04] MEDS ORDERED: EPINEPHrine HCL 250 ML IV ONE (18:02)
[2020-09-04] MEDS ORDERED: NOREPINEPHRINE 8 MG/250ML KIT 250 ML IV SCH (19:00)
[2020-09-04] MEDS ORDERED: EPINEPHrine HCL 250 ML IV SCH (19:00)
[2020-09-04] MEDS ORDERED: EPINEPHrine HCL 1 MG/10 ML SYRG IV ONE (19:32)
[2020-09-04] MEDS ORDERED: SODIUM BICARBONATE 8.4% INJ 50ML SYRINGE IV ONE (19:32)
== END 2020-09-04 19:33 | DRG 871 ==
LOC: EDBD 19:23 → ER 19:23 → TELE 19:24 → TELE-WESTW 08-25 18:07 → ICU WEST 09-04 08:18
PROVIDERS: ADMIT Nurse Practitioner Family; ATTEND Internal Medicine
PROC: XW13325 Transfusion of Convalescent Plasma (Nonautologous) into Peripheral Vein, Percutaneous Approach, New Technology Group 5 (ICD-10-PCS; principal; 2020-08-25)
PROC: XW033E5 Introduction of Remdesivir Anti-infective into Peripheral Vein, Percutaneous Approach, New Technology Group 5 (ICD-10-PCS; 2020-08-25)
PROC: 5A1935Z Respiratory Ventilation, Less than 24 Consecutive Hours (ICD-10-PCS; 2020-09-04)
PROC: 5A12012 Performance of Cardiac Output, Single, Manual (ICD-10-PCS; 2020-09-04)
PROC: 0BH17EZ Insertion of Endotracheal Airway into Trachea, Via Natural or Artificial Opening (ICD-10-PCS; 2020-09-04)
DX: A41.89 Other specified sepsis (principal); U07.1 COVID-19; J96.01 Acute respiratory failure with hypoxia; J12.82 Pneumonia due to coronavirus disease 2019; D68.9 Coagulation defect, unspecified; T79.7XXA Traumatic subcutaneous emphysema, initial encounter; E87.2 Acidosis; F41.9 Anxiety disorder, unspecified; Z66 Do not resuscitate; Z95.0 Presence of cardiac pacemaker; R74.01 Elevation of levels of liver transaminase levels; E66.9 Obesity, unspecified; E88.09 Other disorders of plasma-protein metabolism, not elsewhere classified; D50.9 Iron deficiency anemia, unspecified; F32.9 Major depressive disorder, single episode, unspecified; I10 Essential (primary) hypertension; I25.10 Atherosclerotic heart disease of native coronary artery without angina pectoris; I46.9 Cardiac arrest, cause unspecified; Z95.1 Presence of aortocoronary bypass graft; Z95.2 Presence of prosthetic heart valve; Z68.24 Body mass index [BMI] 24.0-24.9, adult
CPT/HCPCS: 36415; 36600; 51702; 71045; 80053; 82728; 82805; 82962; 83036; 83540; 83550; 83615; 83735; 83880; 84443; 84484; 85025; 85379; 85610; 85730; 86141; 86850; 86900; 86901; 87426; 93005; 93306; 93970; 94002; 94640; 96365; 96367; 96372; 96375; C9113; G0378; J0171; J0330; J1100; J2250; J3490